=== PATIENT | male | born 1980 | race Caucasian/White ===

== ENCOUNTER 2021-01-12 18:51 | Emergency (ER) | payer OTHER ==
[~2021-01-12] VITALS: Ht 177.8 cm; Wt 83.5 kg
[~2021-01-12 18:51] MED LIST: PHENERGAN25 MG PO; PROTONIX40 MG PO
== END 2021-01-12 23:06 | disposition home or self-care (01) ==
LOC: ER 18:51
DX: N20.0 Calculus of kidney (principal); R10.32 Left lower quadrant pain; M54.5 Low back pain